=== PATIENT | male | born 1945 | race Caucasian/White ===

== ENCOUNTER 2019-08-29 11:50 | Emergency (ER) | payer MEDICARE, SELFPAY ==
[2019-08-29 12:10] VITALS: BP 138/77; PULSE 80; RESP 16; TEMP 36.2; O2SAT 99
--- NOTE | 2019-08-29 12:12 | ED.WOUNDLAC ---
HPI - Wound/Laceration General Chief Complaint: Skin/Abscess/Foreign Body Stated Complaint: laceration Time Seen by Provider: 08/29/19 12:12 Source: patient Mode of arrival: ambulatory Limitations: no limitations History of Present Illness HPI narrative: Jose Pizarro is a 73 yo male with a PMH of renal stones, HTN, high cholesterol, who comes to the [facility] with a triangular laceration of the right hand at the base of the thumb on the palmar side. Patient sustained injury POA trying to straighten pull on tractor deck Related Data Home Medications Medication Instructions Recorded Confirmed atenolol 08/29/19 simvastatin mg 08/29/19 Allergies Allergy/AdvReac Type Severity Reaction Status Date / Time No Known Allergies Allergy Unverified 10/16/15 13:11 Review of Systems Review of Systems: Narrative: CONSTITUTIONAL: Denies fever, chills, sweats. EYES: Denies visual changes, redness, discharge. ENT: Denies rhinorrhea, congestion, sore throat, otalgia. CARDIOVASCULAR: Denies chest pain, palpitations, edema. RESPIRATORY: Denies dyspnea, wheezing, cough GASTROINTESTINAL: Denies abdominal pain, nausea, vomiting, diarrhea. GENITOURINARY: Denies dysuria, hematuria, abnormal discharge SKIN: Denies rash or itching. Laceration to right hand palmar side NEUROLOGIC: Denies numbness, or focal weakness. PSYCHIATRIC: Denies anxiety or depression. PMFSH Surgical History Surgical History (Updated 08/29/19 @ 12:29 by Amanda Rader CNP) H/O lithotripsy Family History Family History Other Hypertension Social History Social History (Updated 08/29/19 @ 12:30 by Amanda Rader CNP) Smoking status: Former smoker Alcohol intake: former Gender identity (if verbalized by the patient): Male Comments At time of signature, I agree with nursing past medical, surgical, social and family history. There is no relevant family history pertinent to the presenting complaint. Exam Narrative: Exam Narrative: GENERAL: This is a well-nourished, well-developed patient, in mild distress. HEAD: normocephalic, atraumatic. EYES: Sclera clear/white. Vision is grossly intact. EARS: External ears normal, auditory canals clear and without drainage, TMs normal without perforation. Hearing grossly intact. NOSE: External nose normal without nasal discharge, nares without redness, no rhinorrhea. THROAT: Mucous membranes moist, posterior pharynx NECK: Neck supple, CARDIOVASCULAR: Regular rate and rhythm without murmurs, gallops, or rubs. RESPIRATORY: Clear to auscultation. Breath sounds equal bilaterally. No wheezes, rales, or rhonchi. GASTROINTESTINAL: Abdomen soft, SKIN: warm, laceration to right hand-triangular, 4 cm at the base of the thumb on palmar side, controlled bleeding NEURO: awake, alert, and oriented to person, place and time. There were no obvious focal neurologic abnormalities. Steady gait EXTREMITIES: Normal range of motion. BACK: Nontender without deformity Course Course Emergency Course: Lac repair with vicaryl-aftercare instructions given-reasons to have sutures removed including irritation and pain, sutures in place for 7 days Tetanus current Patient requested antibiotic but was not given explained it was not necessary Follow-up with PCP Vital Signs Vital signs: Vital Signs Temperature 97.1 F L 08/29/19 12:10 Pulse Rate 80 08/29/19 12:10 Respiratory Rate 16 08/29/19 12:10 Blood Pressure 138/77 08/29/19 12:10 Pulse Oximetry 99 08/29/19 12:10 Temperature 97.1 F L 08/29/19 12:10 Pulse Rate 80 08/29/19 12:10 Respiratory Rate 16 08/29/19 12:10 Blood Pressure 138/77 08/29/19 12:10 Pulse Oximetry 99 08/29/19 12:10 Procedures Laceration Laceration 1: Date: 08/29/19 Time: 12:33 Site: hand Side (If applicable): right Size (cm): 4 Description: flap Depth: si
== END 2019-08-29 12:54 | disposition home or self-care (01) ==
PROVIDERS: Emergency Provider Nurse Practitioner
DX: S61.411A Laceration without foreign body of right hand, initial encounter (principal); Z87.442 Personal history of urinary calculi; E78.00 Pure hypercholesterolemia, unspecified; Z87.891 Personal history of nicotine dependence; W30.89XA Contact with other specified agricultural machinery, initial encounter
CPT/HCPCS: 12002; 99212; G0463

== ENCOUNTER 2019-11-15 13:51 | Emergency (ER) | payer MEDICARE, SELFPAY ==
--- NOTE | 2019-11-15 14:13 | ED.EYEPROB ---
HPI - Eye Problem General Chief complaint: Eye Problems Stated complaint: left eye painful/redness Time Seen by Provider: 11/15/19 14:16 Source: patient and RN notes reviewed Mode of arrival: ambulatory Limitations: no limitations History of Present Illness HPI Narrative: 74 old male presents with concern for left eye redness, pain. Reports he was cleaning out his gutters and got debris in both eyes. Reports later he started having pain and watery drainage in the left eye. Denies vision changes in the left eye. Denies any intervention. chief complaint: eye redness Related Data Home Medications Medication Instructions Recorded Confirmed atenolol 50 mg PO DAILY 08/29/19 11/15/19 simvastatin 40 mg PO DAILY 08/29/19 11/15/19 finasteride 5 mg PO DAILY 11/15/19 11/15/19 tamsulosin 0.4 mg PO DAILY 11/15/19 11/15/19 Allergies Allergy/AdvReac Type Severity Reaction Status Date / Time No Known Allergies Allergy Verified 11/15/19 14:20 Review of Systems Review of Systems: Narrative: CONSTITUTIONAL: Denies malaise, chills, sweats, or fever. EYES: Denies visual changes. Reports left eye pain, redness, watering discharge. ENT: Denies rhinorrhea, congestion, sinus pain, otalgia or sore throat. CARDIOVASCULAR: Denies chest pain, palpitations, or edema. RESPIRATORY: Denies cough or dyspnea. SKIN: Denies rash or itching. NEUROLOGIC: Denies headache. All systems reviewed & are unremarkable except as noted in HPI and below PMFSH Surgical History Surgical History (Updated 08/29/19 @ 12:29 by Amanda Rader CNP) H/O lithotripsy Social History Social History (Updated 08/29/19 @ 12:30 by Amanda Rader CNP) Smoking status: Former smoker Alcohol intake: former Gender identity (if verbalized by the patient): Male Comments At time of signature, agree with nursing past medical, surgical, social and family history. There is no relevant family history pertinent to the presenting complaint Exam Narrative: Exam Narrative: GENERAL: Well-appearing, well-nourished, and in no acute distress. HEAD: Normocephalic, atraumatic. EYES: PERRLA and EOMI. No nystagmus. Right eye sclera conjunctive a clear. Left eye sclera and conjunctive injected, corneal abrasion noted upon Adrian lamp exam, see note ENT: Mucous membranes moist. NECK: Supple. CHEST: No respiratory distress. Speaks in full sentences. HEART: Regular rate and rhythm. SKIN: Warm, dry, no rash. NEURO: Alert and oriented x3. PSYCH: Normal mood and affect Course Course Emergency Course: Patient is aware of diagnosis, understands and agrees to treatment plan. Anticipatory guidance given. Patient agrees to follow-up as directed and is aware of reasons to seek care at the emergency department. Portions of this record may have been created with voice recognition software Vital Signs Vital signs: Vital Signs Temperature 97.3 F L 11/15/19 14:15 Pulse Rate 70 11/15/19 14:15 Respiratory Rate 16 11/15/19 14:15 Blood Pressure 133/77 11/15/19 14:15 Pulse Oximetry 99 11/15/19 14:15 Temperature 97.3 F L 11/15/19 14:15 Pulse Rate 70 11/15/19 14:15 Respiratory Rate 16 11/15/19 14:15 Blood Pressure 133/77 11/15/19 14:15 Pulse Oximetry 99 11/15/19 14:15 Reviewed. Procedures Other Procedure Procedure 1: Other Procedure: Tetracaine 1 gtt instilled in left eye, fluorescein stain applied. Corneal abrasion noted upon adrian lamp exam at approximately 6 o'clock in relation to the pupil. Eye washed with NS 100 ml. No foreign bodies or Jenna sign noted. MDM - Eye Problem MDM Narrative Medical decision making narrative: Consideration of the following conditions may be warranted for the presenting problem, they are not final diagnoses: Bacterial conjunctivitis, allergic conjunctivitis, viral conjunctivitis, foreign body, blepharitis, chalazion, hordeolum, corneal abrasion. Exam findings show no acute concerns or changes; patient i
[2019-11-15 14:15] VITALS: BP 133/77; PULSE 70; RESP 16; TEMP 36.3; O2SAT 99
== END 2019-11-15 14:43 | disposition home or self-care (01) ==
PROVIDERS: Emergency Provider Nurse Practitioner
DX: S05.02XA Injury of conjunctiva and corneal abrasion without foreign body, left eye, initial encounter (principal); X58.XXXA Exposure to other specified factors, initial encounter; Z87.891 Personal history of nicotine dependence; E78.00 Pure hypercholesterolemia, unspecified; I10 Essential (primary) hypertension; N40.0 Benign prostatic hyperplasia without lower urinary tract symptoms
CPT/HCPCS: 99213; A9270; G0463

== ENCOUNTER 2021-06-14 11:00 | Outpatient (RCR) | payer MEDICARE, SELFPAY ==
--- NOTE | 2021-04-30 14:30 | OTOPEVAL ---
OCCUPATIONAL THERAPY INITIAL EVALUATION REPORT 04/30/21 Jose is a 75 year-old, right handed male who is referred to outpatient OT following malignant brain tumor removal ~3 weeks ago. At this time he is functioning independently, has intact strength, and intact functional coordination. He and his have concerns that he will have a physical decline with chemo and radiation treatments, however. No skilled OT indicated at this time, but plan to leave his care plan open x4 weeks to allow him to return in the future if the need arises. Will send a formal d/c note in 4 weeks if therapy continues to not be indicated or a OT re-assessment report if we pick back up again. Thank you for referring Jose Pizarro to [facility]. Please review, sign, date and return this plan of care ELSIE. I agree with and certify that the following plan of care is medically necessary. Referring Physician Date Referring Provider: Natividad Rajan PA-C *OT Outpatient Evaluation Start: 04/30/21 13:36 Therapy Assessment Status Assessment Status Assessment Status Evaluation Outpatient Past Medical History Cardiovascular History Hx Hypercholesterolemia Yes Hx Hypertension Yes Respiratory History Hx Respiratory Disorders No Significant History Gastrointestinal History Hx Hernia Yes: inguinal hernia repair Genitourinary History Hx Benign Prostatic Hyperplasia Yes Hx Kidney Stones Yes: lithotripsy Musculoskeletal History Hx Musculoskeletal Disorders No Significant History Evaluation Information Problem 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 He Query Text:As Reported By Patient/ discharged home with his Family on 04/28/21. He reports that at home he is independent with ADLs and mobility. takes care of household tasks. He notes difficulties with memory , using the TV remote, and remembering people's names. Prior Level of Function Activity Level (Last 3 Months) Hand Dominance Right Activity of Daily Living Ability Independent Indoor/Home Mobility Independent Community Mobility Independent Stairs Ability Independent Pain Assessment Timing of Pain Assessment Timing of Pain Assessment Assessment Self Report Self Report Pain Level 0 Pain Score Pain Score 0: Self Report Upper Extremity Range of Motion General Upper Extremity Range of Motion Reason Not Measured WNL/Left,WNL/Right Upper Extremity Muscle Strength Testing General Upper Extremity Strength Reason Not Measured WNL/Left,WNL/Right Gross Upper Extremity Strength Comments Gross UE strength is symmetrical and 5/5. 9-Hole Peg Hand Test Hand Left Scoring Time (seconds)
--- NOTE | 2021-04-30 14:43 | STOPEVAL ---
Thank you for referring Jose Pizarro to [facility].? The patient is scheduled to be seen for therapy? 1x/1 week then 2x/week for 3 weeks. Please review, sign, date and return this plan of care ELSIE. I agree with and certify that the following plan of care is medically necessary. Referring Physician Date Attending Provider: PHYSICIAN NOT ON STAFF Therapy Assessment Status Assessment Status Assessment Status Evaluation Outpatient Past Medical History Cardiovascular History Hx Hypercholesterolemia Yes Hx Hypertension Yes Respiratory History Hx Respiratory Disorders No Significant History Gastrointestinal History Hx Hernia Yes: inguinal hernia repair Genitourinary History Hx Benign Prostatic Hyperplasia Yes Hx Kidney Stones Yes: lithotripsy Musculoskeletal History Hx Musculoskeletal Disorders No Significant History Evaluation Information Problem Diagnosis Cognition issues following parietal lobe tumor and craniotomy Onset 04/15/21 Cause Glioblastoma Additional Evaluation Detail Patient's reports that patient began complaining about a headache and then brain fog around April 12, 2021. She stated that they took him to the hospital where he had an MRI that revealed a mass on the brain. This was determined to be a left parietal lobe tumor and a craniotomy was performed April 15. Patient will be starting radiation this with the fitting of a head shield although patient and report they do not know exactly when radiation will start. Patient will then be undergoing chemotherapy in the future also. Subjective Information The patient and his were Query Text:As Reported By Patient/ present for this evaluation. Family Patient reports that he forgets things. Patient reports he is frustrated because he does not remember how to work their remote control and also will want to find something in his house and can't remember which room
--- NOTE | 2021-05-21 11:31 | PCSTNOTE ---
Patient remains on hold until family contacts [facility] to let us know when he will be available for ST again due to starting radiation/chemotherapy treatments.
--- NOTE | 2021-05-21 11:33 | PCOTNOTE ---
OCCUPATIONAL THERAPY DISCHARGE NOTIFICATION 05/21/2021 Patient:Jose Pizarro Date of :1945 Patient has not returned for any further treatments since his initial OT evaluation on 04/30/2021, therefore he will be discharged at this time. At the initial evaluation visit the patient was functioning independently, had intact strength, and intact functional coordination. We left his chart open for a few weeks to allow him to return if he began to feel physically affected by the chemo and radiation treatments. Followed up with the patient via phone today and he states he has not noticed any changes and does not feel that he is in need of OT services. Discharging the patient today with OT services not needed. Thank you for referring this patient to [facility]. Please review, sign, date and return this discharge summary ELSIE. I have been updated about the patient's current status and I agree with discharge from the above service at this time. Referring Physician Date Referring Provider: Natividad Rajan PA-C
--- NOTE | 2021-06-14 15:53 | STOPEVAL ---
Thank you for referring Jose Pizarro to [facility].? The patient was re-evaluated and no further Speech Therapy was indicated. He is being discharged from Speech Therapy at this time. I agree with and certify that the following discharge. Referring Physician Date Attending Provider: PHYSICIAN NOT ON STAFF Therapy Assessment Status Assessment Status Assessment Status Discharge Cognitive Evaluation Orientation/Memory Assessment Immediate Memory 90 Query Text:% Accuracy Recent Memory 90 Query Text:% Accuracy Prospective Memory 100 Query Text:% Accuracy Temporal Orientation 100 Query Text:% Accuracy Spatial/Environmental Orientation 100 Query Text:% Accuracy Overall Orientation and Memory No Impairment Problem Solving Simple Problem Solving: Percent of 100 Accuracy 0-100 (%) Complex Problem Solving: Percent of 100 Accuracy 0-100 (%) Overall Problem Solving Skills No Impairment Thought Organization Sequencing: Percent of Accuracy 0-100 (% 100 ) Categorizing: Percent of Accuracy 0-100 100 (%) Functional Math: Percent of Accuracy 0- 100 100 (%) Functional Reading: Percent of Accuracy 100 0-100 (%) Overall Thought Organization Ability No Impairment Thought Organization Comments Lengthy, complex paragraph out -of-sequenced order: 80% ac Auditory Processing and Retention Assessment Complex Yes/No Question (% Accuracy) 100 Auditory Processing Complex Directives ( 100 % Accuracy) Auditory Processing Complex Paragraphs ( 60 % Accuracy) Response Latency No Impairment Factors Limiting Auditory Processing and Decreased Attention Retention Function For Speech Therapy Overall Auditory Processing Ability No Impairment Auditory Processing Comments Patient was given a verbal short story and was asked three questions. He missed the first question which was given briefly at the beginning of the story; this is the same information that 90% of this therapist's patients do not catch. ST Clinical Summary Clinical Summary SPEECH THERAPY RE-EVALUATION AND DISCHARGE SUMMARY ST Clinical Summary Patient was diagnosed with s/p gliobastoma removal from the left parietal lobe posterior to postcentral gyrus on 04/15/21.
== END 2021-07-15 13:06 | disposition home or self-care (01) ==
LOC: ANHST 11:00
DX: G93.9 Disorder of brain, unspecified (principal); R41.89 Other symptoms and signs involving cognitive functions and awareness
CPT/HCPCS: 92507; 92523; 97166

== ENCOUNTER 2021-09-11 08:44 | Emergency (ER) | payer MEDICARE, SELFPAY ==
[2021-09-11 09:33] VITALS: BP 128/79; PULSE 57; RESP 16; TEMP 36.5; O2SAT 99
--- NOTE | 2021-09-11 09:46 | ED.WOUNDLAC ---
HPI - Wound/Laceration General Chief Complaint: Wound/Laceration Stated Complaint: cut right thumb Time Seen by Provider: 09/11/21 09:46 Source: patient, RN notes reviewed and old records reviewed Mode of arrival: ambulatory Limitations: no limitations History of Present Illness HPI narrative: 75-year-old male accompanied by presents to express care with complaints of a laceration to the palmar aspect of right thumb base which occurred this morning when he was removing a battery from a boat. Patient has W shaped wound with each line approximately 1cm with bleeding controlled. Patient reports that his tetanus is up to date. Patient has full mobility of his thymb with no tingling or numbness reported to thumb with brisk capillary refill to his nail bed. Patient is presently taking Chemotherapy for a brain tumor. Location: other (Palmar aspect right proximal thumb region) Related Data Home Medications Medication Instructions Recorded Confirmed atenolol 50 mg tablet 50 mg PO DAILY 08/29/19 09/11/21 simvastatin 40 mg tablet 40 mg PO DAILY 08/29/19 09/11/21 finasteride 5 mg tablet 5 mg PO DAILY 11/15/19 09/11/21 tamsulosin 0.4 mg capsule 0.4 mg PO DAILY 11/15/19 09/11/21 amlodipine 10 mg tablet 1 tablet PO DAILY 09/11/21 09/11/21 dexamethasone 2 mg tablet 1 tablet PO DIRECTED 09/11/21 09/11/21 levetiracetam 1,000 mg tablet 1 tablet PO BID 09/11/21 09/11/21 temozolomide 100 mg capsule 1 cap PO DIRECTED 09/11/21 09/11/21 Allergies Allergy/AdvReac Type Severity Reaction Status Date / Time No Known Allergies Allergy Verified 09/11/21 09:08 Review of Systems Review of Systems: CONSTITUTIONAL: Denies fever, chills, or sweats. EYES: Denies visual changes, redness, or discharge. ENT: Denies rhinorrhea, congestion, sore throat, or otalgia. CARDIOVASCULAR: Denies chest pain, palpitations, or edema. RESPIRATORY: Denies cough or dyspnea. GASTROINTESTINAL: Denies abdominal pain, nausea, vomiting, or diarrhea. GENITOURINARY: Denies dysuria or hematuria. SKIN: Denies rash or itching.positive for laceration to beard aspect of proximal thumb base. MUSCULOSKELETAL: Denies back pain, joint pain, or myalgia. NEUROLOGIC: Denies headache, numbness, or weakness. PSYCHIATRIC: Denies anxiety or depression. [facility] Past Medical History Medical History (Updated 09/13/21 @ 23:48 by Tg Purdy NP) Brain cancer had surgical removal and presently on chemotherapy had radiation treatment also High cholesterol HTN (hypertension) Renal stones Surgical History Surgical History (Updated 09/13/21 @ 23:50 by Tg Purdy NP) H/O brain surgery tumor H/O lithotripsy Family History Family History Other Hypertension Social History Social History (Updated 09/13/21 @ 23:37 by Tg Purdy NP) Smoking status: Former smoker Alcohol intake: former Living arrangements: with family Occupation/Education: retired Gender identity (if verbalized by the patient): Male Comments At time of signature, agree with nursing past medical, surgical, social and family history. There is no relevant family history pertinent to the presenting complaint Exam Narrative: GENERAL: Well-appearing, well-nourished, and in no acute distress. HEAD: Normocephalic, atraumatic. EYES: PERRLA and EOMI. ENT: Nares clear, no rhinorrhea or epistaxis. Mucous membranes moist.TM's normal with good light reflex, throat pink with no lesions or exudates NECK: Supple.no lymphadenopathy CHEST: Clear to auscultation. No respiratory distress.SAO2 99% on room air HEART: Regular rate and rhythm. No murmur heard. Normal peripheral pulses. ABDOMEN: Soft, nontender, nondistended, normal active bowel sounds. EXTREMITIES: Normal range of motion. No edema. SKIN: Warm, dry, no rash. NEURO: No focal deficits. Alert and oriented x3. Course Course Level of Care: Express Care Visit Vital Signs Vital sign
[2021-09-11] MEDS: LIDOCAINE HCL 1% LOCAL INJ 20 ML VIAL 5 ML INFILTRATE (10:11)
== END 2021-09-11 11:02 | disposition home or self-care (01) ==
PROVIDERS: Emergency Provider Registered Nurse
DX: S61.411A Laceration without foreign body of right hand, initial encounter (principal); X58.XXXA Exposure to other specified factors, initial encounter; C71.9 Malignant neoplasm of brain, unspecified; Z87.891 Personal history of nicotine dependence; E78.00 Pure hypercholesterolemia, unspecified; I10 Essential (primary) hypertension; Z79.899 Other long term (current) drug therapy
CPT/HCPCS: 12001; 99213; G0463

== ENCOUNTER 2021-09-23 08:26 | Emergency (ER) | payer MEDICARE, SELFPAY ==
--- NOTE | 2021-09-23 08:34 | ED.SKABFB ---
HPI - Skin/Abscess/Foreign Bdy General Chief complaint: Skin/Abscess/Foreign Body Stated complaint: Suture Removal Time Seen by Provider: 09/23/21 08:40 Source: patient Mode of arrival: ambulatory Limitations: no limitations History of Present Illness HPI narrative: 75-year-old male presented for suture removal of right thumb base laceration. Sutures (#10) were placed 09/11/2021. Denies redness, swelling, pain or drainage. No other concerns at this time. MD complaint: rash Related Data Home Medications Medication Instructions Recorded Confirmed atenolol 50 mg tablet 50 mg PO DAILY 08/29/19 09/11/21 simvastatin 40 mg tablet 40 mg PO DAILY 08/29/19 09/11/21 finasteride 5 mg tablet 5 mg PO DAILY 11/15/19 09/11/21 tamsulosin 0.4 mg capsule 0.4 mg PO DAILY 11/15/19 09/11/21 amlodipine 10 mg tablet 1 tablet PO DAILY 09/11/21 09/11/21 dexamethasone 2 mg tablet 1 tablet PO DIRECTED 09/11/21 09/11/21 levetiracetam 1,000 mg tablet 1 tablet PO BID 09/11/21 09/11/21 temozolomide 100 mg capsule 1 cap PO DIRECTED 09/11/21 09/11/21 Allergies Allergy/AdvReac Type Severity Reaction Status Date / Time No Known Allergies Allergy Verified 09/23/21 08:35 Review of Systems Review of Systems: CONSTITUTIONAL: Denies body aches, fever, chills, or sweats. CARDIOVASCULAR: Denies chest pain, palpitations, or edema. RESPIRATORY: Denies dyspnea. SKIN: reports healing wound with sutures MUSCULOSKELETAL: Denies back pain, joint pain, or myalgia. NEUROLOGIC: Denies headache, numbness, tingling, or weakness. [facility] Past Medical History Medical History Brain cancer had surgical removal and presently on chemotherapy had radiation treatment also High cholesterol HTN (hypertension) Renal stones Surgical History Surgical History H/O brain surgery tumor H/O lithotripsy Family History Family History Other Hypertension Social History Social History Smoking status: Former smoker Alcohol intake: former Gender identity (if verbalized by the patient): Male Comments At time of signature, I have reviewed and agree with nursing past medical, surgical, social and family history unless otherwise noted. Please see nursing chart for further information. There is no relevant family history pertinent to the presenting complaint Exam Narrative: GENERAL: Well-appearing EYES: conjunctivae clear, and EOMI. ENT: Mucous membranes moist. CHEST: No respiratory distress. SKIN: Warm, dry. Healing laceration with 10 sutures to right thumb base NEURO: Alert and oriented x3. PSYCH: Normal mood and affect Course Course Emergency Course: Patient is aware of diagnosis, understands and agrees to treatment plan. Anticipatory guidance given. Patient agrees to follow-up as directed and is aware of reasons to seek care at the emergency department. Portions of this record may have been created with voice recognition software Level of Care: Express Care Visit Vital Signs Vital signs: Vital Signs Temperature 97.3 F L 09/23/21 08:38 Pulse Rate 71 09/23/21 08:38 Respiratory Rate 18 09/23/21 08:38 Blood Pressure 127/77 09/23/21 08:38 Pulse Oximetry 97 09/23/21 08:38 Oxygen Delivery Room Air 09/23/21 08:38 Temperature 97.3 F L 09/23/21 08:38 Pulse Rate 71 09/23/21 08:38 Respiratory Rate 18 09/23/21 08:38 Blood Pressure 127/77 09/23/21 08:38 Pulse Oximetry 97 09/23/21 08:38 Oxygen Delivery Room Air 09/23/21 08:38 Reviewed Procedures Other Procedure Procedure 1: Other Procedure: 10 sutures removed from right thumb base, wound appears healing well without s/s infection. Full ROM. Pt tolerated well. MDM - Skin/Abscess/Foreign Bdy MDM Narrative Medical decision
[2021-09-23 08:38] VITALS: BP 127/77; PULSE 71; RESP 18; TEMP 36.3; O2SAT 97
== END 2021-09-23 09:00 | disposition home or self-care (01) ==
PROVIDERS: Emergency Provider Nurse Practitioner Family
DX: S61.011D Laceration without foreign body of right thumb without damage to nail, subsequent encounter (principal); X58.XXXD Exposure to other specified factors, subsequent encounter; E78.00 Pure hypercholesterolemia, unspecified; I10 Essential (primary) hypertension; C71.9 Malignant neoplasm of brain, unspecified
CPT/HCPCS: 99211; G0463

== ENCOUNTER 2022-08-23 11:06 | Emergency (ER) | payer MEDICARE, SELFPAY ==
[2022-08-23 11:32] VITALS: BP 119/79; PULSE 96; RESP 16; TEMP 36.7; O2SAT 97
--- NOTE | 2022-08-23 11:41 | ED.URI ---
HPI - URI/Sore Throat General Chief Complaint: Upper Respiratory Infection Stated Complaint: URI Source: patient and RN notes reviewed History of Present Illness HPI Narrative: 76 yo M presents to urgent care with at side. Pt states he has been congested and coughing x 3-4 days. states the cough is becoming worse. Pt states the cough is worse at nighttime. Pt denies any fevers, chills, SOB, chest pain, vomiting, or diarrhea. Pt is currently taking a tapering dose of dexamethasone for his brain CA. Pt attempted taking some old cough medicine at home and ligia without relief. Related Data Home Medications Medication Instructions Recorded Confirmed finasteride 5 mg tablet 5 mg PO DAILY 11/15/19 08/23/22 tamsulosin 0.4 mg capsule 0.4 mg PO DAILY 11/15/19 08/23/22 amlodipine 10 mg tablet 1 tablet PO DAILY 09/11/21 08/23/22 dexamethasone 2 mg tablet 1 tablet PO DIRECTED 09/11/21 08/23/22 levetiracetam 1,000 mg tablet 1 tablet PO BID 09/11/21 08/23/22 temozolomide 100 mg capsule 1 cap PO DIRECTED 09/11/21 08/23/22 atorvastatin 20 mg tablet 20 mg PO DAILY 08/23/22 08/23/22 fexofenadine 180 mg tablet 180 mg PO DAILY 08/23/22 08/23/22 mirabegron 25 mg tablet,extended 25 mg PO EVERY OTHER DAY 08/23/22 08/23/22 release 24 hr (Myrbetriq) Allergies Allergy/AdvReac Type Severity Reaction Status Date / Time No Known Allergies Allergy Verified 08/23/22 11:17 Review of Systems Review of Systems: Pertinent positives and pertinent negatives per HPI. [facility] Past Medical History Medical History Brain cancer had surgical removal and presently on chemotherapy had radiation treatment also High cholesterol HTN (hypertension) Renal stones Surgical History Surgical History H/O brain surgery tumor H/O lithotripsy Family History Family History Other Hypertension Social History Social History Smoking status: Former smoker Alcohol intake: former Living arrangements: with family Occupation/Education: retired Gender identity (if verbalized by the patient): Male Comments At the time of my signature, I reviewed and agree with the nursing past medical, surgical, social, and family history. There is no relevant family history pertinent to the patient complaint. Exam Narrative: GENERAL: This is a well-nourished, well-developed patient, in no apparent distress. HEAD: normocephalic, atraumatic. EYES: Sclera clear/white. Vision is grossly intact. eyes look slightly sunken in. EARS: External ears normal, auditory canals clear and without drainage, TMs normal without perforation. Hearing grossly intact. NOSE: External nose normal with rhinorrhea and congestion. THROAT: Mucous membranes moist, posterior pharynx clear. NECK: Neck supple, non-tender without lymphadenopathy, masses or thyromegaly. CARDIOVASCULAR: Regular rate and rhythm without murmurs, gallops, or rubs. RESPIRATORY: Clear to auscultation. Breath sounds equal bilaterally. No wheezes, rales, or rhonchi. Frequent dry cough in exam room. SKIN: warm, intact with no suspicious lesions or rash, good texture and turgor. NEURO: awake, alert, and oriented to person, place and time. There were no obvious focal neurologic abnormalities. EXTREMITIES: No clubbing, cyanosis, or edema. No joint tenderness, effusion, or edema noted. BACK: Nontender without deformity or crepitus. No flank tenderness. Course Course Level of Care: Express Care Visit Vital Signs Vital signs: Vital Signs Temperature 98.0 F 08/23/22 11:32 Pulse Rate 96 08/23/22 11:32 Respiratory Rate 16 08/23/22 11:32 Blood Pressure 119/79 08/23/22 11:32 Pulse Oximetry 97 08/23/22 11:32 Oxygen Delivery Room Air 08/23/22 11:32 [place]
== END 2022-08-23 12:13 | disposition home or self-care (01) ==
PROVIDERS: Emergency Provider Nurse Practitioner Family
DX: J40 Bronchitis, not specified as acute or chronic (principal); J32.9 Chronic sinusitis, unspecified; E78.00 Pure hypercholesterolemia, unspecified; I10 Essential (primary) hypertension; Z87.442 Personal history of urinary calculi; Z87.891 Personal history of nicotine dependence
CPT/HCPCS: 99213; G0463